=== PATIENT | female | born 2000 | race Caucasian/White ===

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

== ENCOUNTER 2021-03-15 19:58 | Emergency (ER) | payer OTHER, MEDICAID ==
[~2021-03-15] VITALS: Ht 154.9 cm; Wt 49.0 kg
[2021-03-15] MEDS ORDERED: MEDROLDOSEPACK PO (21:32)
[2021-03-15 21:42] VITALS: BP 124/70
== END 2021-03-15 21:42 | disposition home or self-care (01) ==
LOC: M.ERS 19:58
DX: M79.601 Pain in right arm (principal); J45.909 Unspecified asthma, uncomplicated; Z88.0 Allergy status to penicillin